=== PATIENT | male | born 1960 | race Caucasian/White ===

== ENCOUNTER 2019-09-24 14:49 | Inpatient (IN) | payer OTHER ==
[~2019-09-24] VITALS: Ht 165.1 cm; Wt 73.6 kg
[2019-09-24] MEDS ORDERED: IV NORMAL SALINE 1,000ML 1,000 ML IV SCH (14:58)
[2019-09-24] MEDS ORDERED: ASPIRIN 81 MG TAB.CHEW PO ONE (15:00)
[2019-09-24] MEDS ORDERED: ONDANSETRON PF 4 MG/2 ML VIAL. ONE (15:09)
[2019-09-24] MEDS: MORPHINE SULFATE 4 MG/ML DISP.SYRIN. IV/SQ PRN ×2 (15:14→17:04)
[2019-09-24] MEDS ORDERED: ONDANSETRON PF 4 MG/2 ML VIAL. IVP ONE (15:15)
--- NOTE | 2019-09-24 15:16 | PHYS DOC ---
Past History Past Medical History: Cancer (NELA IVERSON Jr., DO) Past Medical History: Alcoholism, Anxiety, GERD (LINN HOLLAND MD) Past Surgical History: Other Additional Past Surgical Histo: port in leg (NELA IVERSON Jr., DO) Alcohol Use: None (NELA IVERSON Jr., DO) Adult General Chief Complaint Chief Complaint: CHEST PAIN HPI HPI Patient is a 58-year-old male who presents with complaint of chest pain with nausea, vomiting and diaphoresis that started 2 days ago. Patient states that initially pain was fairly mild but today it has gotten a lot more severe and patient rates it at an 8-9 out of 10 currently. He describes pain as a lot of pressure, stating that it feels like there is an elephant sitting on his chest. Patient states that symptoms are worsened with exertion and he has some shortness of breath with exertion.[] (NELA IVERSON Jr., DO) Review of Systems Review of Systems Constitutional: Denies fever or chills [] Respiratory: Denies cough or shortness of breath [] Cardiovascular: No additional information not addressed in HPI [] GI: Denies abdominal pain. Complains of nausea and vomiting without diarrhea [] Integument: Denies rash or skin lesions [] Neurologic: Denies headache, focal weakness or sensory changes [] All other systems were reviewed and found to be within normal limits, except as documented in this note. (NELA IVERSON Jr., DO) Current Medications Current Medications Current Medications Medications (Trade) Dose Ordered Sig/Vishal Start Time Stop Time Status Last Admin Dose Admin Aspirin (Children'S Aspirin) 324 mg 1X ONCE 09/24/19 15:00 09/24/19 15:01 UNV Morphine Sulfate (Morphine 4mg Syringe) 4 mg PRN Q15MIN PRN 09/24/19 15:00 09/25/19 14:59 UNV Ondansetron HCl (Zofran) 4 mg 1X ONCE 09/24/19 15:15 09/24/19 15:16 UNV Sodium Chloride 1,000 ml @ 1,000 mls/hr Q1H 09/24/19 14:58 09/24/19 15:57 UNV (NELA IVERSON Jr., DO) Allergies Allergies Allergies Coded Allergies Type Severity Reaction Last Updated Verified No Known Drug Allergies 09/24/19 No (NELA IVERSON Jr., DO) Physical Exam Physical Exam Constitutional: Well developed, well nourished, in mild distress, non-toxic appearance. [] HENT: Normocephalic, atraumatic, bilateral external ears normal, oropharynx moist, no oral exudates, nose normal. [] Eyes: PERRLA, EOMI, conjunctiva normal, no discharge. [] Neck: Normal range of motion, no tenderness, supple, no stridor. [] Cardiovascular: Regular rate and rhythm[] Lungs & Thorax: Bilateral breath sounds clear to auscultation [] Abdomen: Bowel sounds normal, soft, no tenderness. [] Skin: Warm, dry, no erythema, no rash. [] Extremities: No tenderness, no cyanosis, no clubbing, ROM intact, no edema. [] Neurologic: Alert and oriented X 3, normal motor function, normal sensory function, no focal deficits noted. [] (NELA IVERSON Jr., DO) Current Patient Data Vital Signs Vital Signs Date Time Temp Pulse Resp B/P (MAP) Pulse Ox O2 Delivery O2 Flow Rate FiO2 09/24/19 14:58 97.6 78 18 123/83 (96) 99 Room Air (NELA IVERSON Jr., DO) EKG EKG EKG demonstrates sinus arrhythmia with rate of 79.[] (NELA IVERSON Jr., DO) Radiology/Procedures Radiology/Procedures [] (NELA IVERSON Jr., DO) Radiology/[place] [address] IMAGING REPORT Signed PATIENT: ALDEN SEPULVEDAACCOUNT: [id number] : 1960 LOCATION: ER AGE: 58 SEX: M EXAM STATUS: REG ER ORD. PHYSICIAN: NELA IVERSON Jr., DO REASON: upper abd pain; vomiting PROCEDURE: CT ABD PELV W/ IV CONTRST ONLY INDICATION: Upper abdominal pain and vomiting COMPARISON: None. TECHNIQUE: Axial CT images obtained through the abdomen and pelvis with contrast. One or more of the following individualized dose reduction techniques were utilized for this examination: 1. Automated exposure control; 2. Adjustment of the mA and/or kV according to patient size; 3. Use of iterative reconstruction technique. FINDINGS: linear opacities lung bases could be from scarring or atelectasis. Scattered calcific atherosclerosis. Fat-containing inguinal hernias. Liver is low density. Fat-containing umbilical hernia. Low-density within the liver at the falciform ligament. Commonly from focal fat. Apparent fold at the fundus of the gallbladder or possibly diverticulum. There is prominence of the wall at that region. There is also some calcifications along the wall suspected gallbladder. Spleen is small in size. No left-sided hydronephrosis. Urinary bladder partially distended with some mild indistinctness of adjacent fat. No right-sided hydronephrosis. Calcifications within the prostate. Colonic diverticulosis. No periappendiceal inflammatory changes. No dilated loops of bowel to suggest obstruction. Fat-containing umbilical hernia. Multiple right lower rib fractures. Fracture line is still seen with some of them having some apparent callus formation. IMPRESSION: * No evidence of bowel obstruction or appendicitis. * There is a fold or diverticulum at the fundus of the gallbladder with some prominence of the wall at this site. It may be helpful to obtain a focused ultrasound to further assess. There is also some suspected calcifications along the wall although tiny stones could have this appearance as well. * Multiple right rib fractures with fracture line still seen although some of these may have some early callus formation. Would correlate with pain in the region and history of trauma. Could be subacute in nature given the appearance. * Mild indistinctness in the fat adjacent to the urinary bladder. Would correlate with symptoms in the region to ensure that this is not from a pathologic cause such as mild cystitis. Electronically signed by: Korey Escobedo MD (09/24/2019 6:31 PM) [id number] DICTATED AND SIGNED BY: KOREY ESCOBEDO MD DATE: 09/24/191830 CC: NELA IVERSON Jr., DO; LINN HOLLAND MD; PCP,NO ~[address] [address] IMAGING REPORT Signed PATIENT: ALDEN SEPULVEDAACCOUNT: [id number] : 1960 LOCATION: ER AGE: 58 SEX: M EXAM STATUS: REG ER ORD. PHYSICIAN: NELA IVERSON Jr., DO REASON: chest pain PROCEDURE: PORTABLE CHEST 1V Single view of the chest. 09/24/2019 2:58 PM Indication: Chest pain Comparison: None Findings: There is a left subclavian port with tip at the superior vena cava. No pneumothorax, pleural effusion, or focal infiltrate is seen. Heart size is normal. Bony thorax is grossly intact. IMPRESSION: No evidence of acute cardiopulmonary process Electronically signed by: Torres Saenz MD (09/24/2019 3:29 PM) [id number] DICTATED AND SIGNED BY: TORRES SAENZ MD DATE: 09/24/19 1529 CC: NELA IVERSON Jr. DO; PCP,NO ~ (LINN HOLLAND MD) Course & Med Decision Making Course & Med Decision Making Pertinent Labs and Imaging studies reviewed. (See chart for details) [] (NELA IVERSON Jr., DO) Course & Med Decision Making See Dr. Iverson note for details. Plan admit for observation CP, and Intractable vomiting. Dr. Saleem/ [facility] Cardiology consult. US gallbladder in Am. Heart Score= 4 Impression: 1. Chest pain-suspect related to acute biliary colic/gastritis and reflux 2. Diabetes glucose 147 3. Hypomagnesemia 1.7 4. Alcohol abuse 222 5. Biliary colic/gastritis/GERD Hx 6. Epigastric Abdomen pain-intractable vomiting 7. Dehydration 8. Rib fractures-appear to be old by callus (LINN HOLLAND MD) Dragon Disclaimer Dragon Disclaimer This electronic medical record was generated, in whole or in part, using a voice recognition dictation system. (NELA IVERSON Jr., DO) Departure Departure: Impression: Primary Impression: Chest pain Additional Impression: Intractable vomiting Disposition: HOME/RESIDENCE PRIOR TO ADM Condition: STABLE Referrals: PCP,NO (PCP) Dragon Disclaimer This chart was dictated in whole or in part using Voice Recognition software in a busy, high-work load, and often noisy Emergency Department environment. It may contain unintended and wholly unrecognized errors or omissions. (LINN HOLLAND MD) Problem Qualifiers Primary Impression: Chest pain Chest pain type: unspecified Qualified Codes: R07.9 - Chest pain, unspecified Additional Impression: Intractable vomiting Vomiting type: unspecified Nausea presence: with nausea Qualified Codes: R11.2 - Nausea with vomiting, unspecified NELA IVERSON Jr. DO Sep 24, 2019 15:16 LINN HOLLAND MD Sep 24, 2019 18:36
[2019-09-24 15:31] LABS: BASO # 0.1 x10^3/uL (0.0-0.2); BASO % 1 % (0-3); EOS % 1 % (0-3); HEMATOCRIT 49.5 % (39.0-53.0); HEMOGLOBIN 16.8 g/dL (13.0-17.5); LYMPH # 2.3 x10^3/uL (1.0-4.8); LYMPH % 32 % (24-48); MEAN CORPUSCULAR HEMOGLOBIN 34 pg (25-35); MEAN CORPUSCULAR HGB CONC 34 g/dL (31-37); MEAN CORPUSCULAR VOLUME 100 fL (79-100); MONO # 0.7 x10^3/uL (0.0-1.1); MONO % 10 % (0-9); NEUT % 57 % (31-73); PLATELET COUNT 173 x10^3/uL (140-400); RED BLOOD COUNT 4.97 x10^6/uL (4.30-5.70); RED CELL DISTRIBUTION WIDTH 13.5 % (11.5-14.5)
--- NOTE | 2019-09-24 15:32 | RAD ---
Single view of the chest. 09/24/2019 2:58 PM Indication: Chest pain Comparison: None Findings: There is a left subclavian port with tip at the superior vena cava. No pneumothorax, pleural effusion, or focal infiltrate is seen. Heart size is normal. Bony thorax is grossly intact. IMPRESSION: No evidence of acute cardiopulmonary process Electronically signed by: Torres Rasmussen MD (09/24/2019 3:29 PM) [id number]
[2019-09-24 15:33] LABS: CALCIUM 8.7 mg/dL (8.5-10.1); CREATININE 0.8 mg/dL (0.7-1.3); GFR 98.6; POTASSIUM 3.7 mmol/L (3.5-5.1)
[2019-09-24] MEDS ORDERED: METOCLOPRAMIDE HCL 10 MG/2 ML VIAL. IVP ONE (15:45)
[2019-09-24 15:46] LABS: ALBUMIN 3.5 g/dL (3.4-5.0); MAGNESIUM 1.7 mg/dL (1.8-2.4); TOTAL BILIRUBIN 0.2 mg/dL (0.2-1.0); TOTAL PROTEIN 7.1 g/dL (6.4-8.2)
[2019-09-24] MEDS ORDERED: diphenhydrAMINE 50 MG/ML VIAL IVP ONE (17:00)
[2019-09-24] MEDS ORDERED: PROCHLORPERAZINE 10 MG/2 ML VIAL. IV ONE (17:00)
[2019-09-24] MEDS ORDERED: IOHEXOL 300 MG/ML 75 ML VIAL. IV ONE (17:15)
[2019-09-24 17:30] LABS: BILIRUBIN,URINE NEG (NEG); CLARITY,URINE CLEAR; COLOR,URINE YELLOW; GLUCOSE,URINE NEG (NEG)
[2019-09-24 17:31] LABS: BACTERIA,URINE 0 /HPF (0-FEW); NITRITE,URINE NEG (NEG); RBC,URINE OCC /HPF (0-2); SQUAMOUS EPITHELIAL CELL,UR OCC /LPF; UROBILINOGEN,URINE 0.2 mg/dL (0.2 mg/dL); WBC,URINE 0 /HPF (0-4)
--- NOTE | 2019-09-24 17:33 | EKG ---
[address] [address] Test Date: 2019-09-24 Test Time: 14:53:26 Pat Name: ALDEN SEPULVEDA Department: Room: Gender: M [employer] Technician: : 1960 Requested By: NELA RYAN Order Number: [id number] Reading MD: Measurements Intervals [place] Rate: 79 P: 73 [place]: 128 QRS: -42 QRSD: 78 T: 45 QT: 394 QTc: 453 Interpretive Statements SINUS ARRHYTHMIA ABNORMAL LEFT AXIS DEVIATION LEFT ANTERIOR FASCICULAR BLOCK QRS(T) CONTOUR ABNORMALITY CONSIDER ANTEROLATERAL MYOCARDIAL DAMAGE ABNORMAL ECG RI6.01 No previous ECG available for comparison
[2019-09-24 17:58] LABS: BARBITURATES NEG (NEG); BENZODIAZEPINES NEG (NEG); CANNABINOIDS NEG (NEG); COCAINE NEG (NEG); METHADONE NEG (NEG); OPIATES POS (NEG); PHENCYCLIDINE NEG (NEG)
[2019-09-24 18:01] LABS: AMPHETAMINE/METHAMPHETAMINE NEG (NEG)
--- NOTE | 2019-09-24 18:34 | RAD ---
INDICATION: Upper abdominal pain and vomiting COMPARISON: None. TECHNIQUE: Axial CT images obtained through the abdomen and pelvis with contrast. One or more of the following individualized dose reduction techniques were utilized for this examination: 1. Automated exposure control; 2. Adjustment of the mA and/or kV according to patient size; 3. Use of iterative reconstruction technique. FINDINGS: linear opacities lung bases could be from scarring or atelectasis. Scattered calcific atherosclerosis. Fat-containing inguinal hernias. Liver is low density. Fat-containing umbilical hernia. Low-density within the liver at the falciform ligament. Commonly from focal fat. Apparent fold at the fundus of the gallbladder or possibly diverticulum. There is prominence of the wall at that region. There is also some calcifications along the wall suspected gallbladder. Spleen is small in size. No left-sided hydronephrosis. Urinary bladder partially distended with some mild indistinctness of adjacent fat. No right-sided hydronephrosis. Calcifications within the prostate. Colonic diverticulosis. No periappendiceal inflammatory changes. No dilated loops of bowel to suggest obstruction. Fat-containing umbilical hernia. Multiple right lower rib fractures. Fracture line is still seen with some of them having some apparent callus formation. IMPRESSION: * No evidence of bowel obstruction or appendicitis. * There is a fold or diverticulum at the fundus of the gallbladder with some prominence of the wall at this site. It may be helpful to obtain a focused ultrasound to further assess. There is also some suspected calcifications along the wall although tiny stones could have this appearance as well. * Multiple right rib fractures with fracture line still seen although some of these may have some early callus formation. Would correlate with pain in the region and history of trauma. Could be subacute in nature given the appearance. * Mild indistinctness in the fat adjacent to the urinary bladder. Would correlate with symptoms in the region to ensure that this is not from a pathologic cause such as mild cystitis. Electronically signed by: Martin Escobedo MD (09/24/2019 6:31 PM) [id number]
[2019-09-24] MEDS ORDERED: MAGNESIUM SULFATE 2GM 50 ML IV ONE (19:00)
[2019-09-24] MEDS ORDERED: MORPHINE SULFATE 10 MG/ML SYRINGE. SQ PRN (19:00)
[2019-09-24] MEDS ORDERED: ONDANSETRON PF 4 MG/2 ML VIAL. IVP PRN (19:00)
[2019-09-24] MEDS ORDERED: MVI, ADULT NO.4 WITH VIT K 10 ML, FOLIC ACID INJ 1 MG, THIAMINE INJ 100 MG in IV RINGER... IV ONE ×4 (19:00)
[2019-09-24] MEDS ORDERED: ACETAMINOPHEN 325 MG TABLET PO PRN (19:00)
[2019-09-24] MEDS: IPRATRPIUM/ALBUTEROL 0.5/2.5MG 3 ML NEBU. NEB SCH (20:00)
[2019-09-24 22:10] VITALS: BP 142/86
[2019-09-24] MEDS: IV RINGERS SOLUTION,LACTATED 1,000 ML IV SCH (22:23)
[2019-09-24] MEDS: FAMOTIDINE 20 MG/2 ML VIAL IVP SCH (23:25)
[2019-09-25] MEDS ORDERED: MELA3TAB4 PO (01:01)
[2019-09-25] MEDS ORDERED: SUCR1TAB PO (01:01)
[2019-09-25] MEDS ORDERED: FLUO60TA PO (01:01)
[2019-09-25] MEDS ORDERED: BUSP15TA PO (01:01)
[2019-09-25] MEDS: IV RINGERS SOLUTION,LACTATED 1,000 ML IV SCH ×2 (02:56→17:17)
[2019-09-25] MEDS: IPRATRPIUM/ALBUTEROL 0.5/2.5MG 3 ML NEBU. NEB SCH ×3 (04:40→16:32)
[2019-09-25 05:36] VITALS: BP 144/95
--- NOTE | 2019-09-25 08:21 | RAD ---
Ultrasound the abdomen complete. HISTORY: Abdominal pain, nausea, vomiting, abnormal CT scan Ultrasound was used to evaluate the abdomen. Pancreas is poorly visualized, portions of the mid pancreas were identified. There are multiple gallstones in the gallbladder. Gallbladder wall was mildly thickened. Liver was normal in size without a focal lesion. Mild fatty liver changes possible. Common duct was upper normal at 5 mm. Right kidney was 10.7 cm in length without a mass or hydronephrosis. Aorta and vena cava were unremarkable. Spleen was normal in size and appearance. Left kidney was 10.2 cm in length without a mass or hydronephrosis. IMPRESSION: 1. Cholelithiasis with thickening of the gallbladder wall possible cholecystitis. 2. Poor visualization of the pancreas. Electronically signed by: Sadiq Lawson MD (09/25/2019 8:18 AM) [id number]
[2019-09-25] MEDS: FAMOTIDINE 20 MG/2 ML VIAL IVP SCH ×2 (08:56→20:51)
[2019-09-25] MEDS: ASPIRIN 81 MG TAB.CHEW PO SCH (08:56)
--- NOTE | 2019-09-25 08:58 | PDOC2 ---
PAUL LARIOS [employer] 09/25/19 0858: CARDIAC CONSULT DATE OF CONSULT Date Of Consult DATE: 09/25/19 TIME: 08:51 REASON FOR CONSULT Reason for Consult Chest pain REFERRING PHYSICIAN Referring Physician Dr. Bennett SOURCE Source: Chart review, Patient HPI History of Present Illness This is a 58 yo male who presented secondary to chest pain. Patient has a history of lung CA s/p chem and radiation therapy. Reports he has experienced chest pain and shortness of breath for the last year since beginning treatment. Recently, pain has been worse. Located in his bilateral chest. Describes as sharp in nature. Is worse with deep breathing. No dizziness, diaphoresis, palpitations. Has been slightly nauseated. Receives care at [facility]. PAST MEDICAL HISTORY Heme/Onc: Cancer (lung ) Psych: Anxiety, Depression PAST SURGICAL HISTORY Past Surgical History: No pertinent history FAMILY HISTORY Family History: Heart Disease, High Cholestrol, Hypertension SOCIAL HISTORY Smoke: <1 pack per day ALCOHOL: other (daily; 2-3 Vodka drinks daily) Lives: Alone CURRENT MEDICATIONS Current Medications Current Medications Aspirin (Children'S Aspirin) 324 mg 1X ONCE PO Last administered on 09/24/19at 15:00; Start 09/24/19 at 15:00; Stop 09/24/19 at 15:23; Status DC Morphine Sulfate (Morphine 4mg Syringe) 4 mg PRN Q15MIN PRN IV/SQ PAIN GREATER THAN 3/10 Last administered on 09/24/19at 17:04; Start 09/24/19 at 15:00; Stop 09/25/19 at 14:59 Sodium Chloride 1,000 ml @ 1,000 mls/hr Q1H IV Last administered on 09/24/19at 15:13; Start 09/24/19 at 14:58; Stop 09/24/19 at 15:57; Status DC Ondansetron HCl (Zofran) 4 mg STK-MED ONCE .ROUTE ; Start 09/24/19 at 15:09; Stop 09/24/19 at 15:09; Status DC Ondansetron HCl (Zofran) 4 mg 1X ONCE IVP Last administered on 09/24/19at 15:13; Start 09/24/19 at 15:15; Stop 09/24/19 at 15:23; Status DC Metoclopramide HCl (Reglan Vial) 10 mg 1X ONCE IVP Last administered on 09/24/19at 15:41; Start 09/24/19 at 15:45; Stop 09/24/19 at 15:53; Status DC Prochlorperazine Edisylate (Compazine) 10 mg 1X ONCE IV Last administered on 09/24/19at 17:03; Start 09/24/19 at 17:00; Stop 09/24/19 at 17:01; Status DC Diphenhydramine HCl (Benadryl) 25 mg 1X ONCE IVP Last administered on 09/24/19at 17:04; Start 09/24/19 at 17:00; Stop 09/24/19 at 17:01; Status DC Iohexol (Omnipaque 300 Mg/ml) 75 ml 1X ONCE IV ; Start 09/24/19 at 17:15; Stop 09/24/19 at 17:27; Status DC Ondansetron HCl (Zofran) 4 mg PRN Q4HRS PRN IVP NAUSEA/VOMITING; Start 09/24/19 at 19:00; Stop 09/25/19 at 18:59 Acetaminophen (Tylenol) 650 mg PRN Q4HRS PRN PO FEVER; Start 09/24/19 at 19:00; Stop 09/25/19 at 18:59 Albuterol/ Ipratropium (Duoneb) 3 ml RTQID NEB Last administered on 09/25/19at 04:40; Start 09/24/19 at 20:00; Stop 09/25/19 at 19:59 Multivitamins/ Minerals 10 ml/ Folic Acid 1 mg/ Thiamine HCl 100 mg/Lactated Ringer's 1,011.3 ml @ 1,011.3 mls/hr 1X ONCE IV Last administered on 09/24/19at 19:00; Start 09/24/19 at 19:00; Stop 09/24/19 at 19:59; Status DC Famotidine (Pepcid Vial) 20 mg BID IVP Last administered on 09/24/19at 23:25; Start 09/24/19 at 21:00 Lactated Ringer's 1,000 ml @ 200 mls/hr Q5H IV Last administered on 09/25/19at 02:56; Start 09/24/19 at 19:00 Morphine Sulfate (Morphine 10mg Syringe) 10 mg PRN QID PRN SQ PAIN; Start 09/24/19 at 19:00 Lorazepam (Ativan Inj) 1 mg QID IVP Last administered on 09/24/19at 23:25; Start 09/24/19 at 21:00 Magnesium Sulfate 50 ml @ 25 mls/hr 1X ONCE IV Last administered on 09/24/19at 22:23; Start 09/24/19 at 19:00; Stop 09/24/19 at 20:59; Status DC Aspirin (Children'S Aspirin) 81 mg DAILY PO ; Start 09/25/19 at 09:00 Active Scripts Active Reported Sucralfate 1 Gm Tablet 1 Gm PO DAILYAC Fluoxetine Hcl 60 Mg Tablet 60 Mg PO DAILY Buspirone Hcl 15 Mg Tablet 15 Mg PO BID Melatonin 3 Mg Tablet 3 Mg PO QHS ALLERGIES Allergies: Coded Allergies: No Known Drug Allergies (Unverified , 09/24/19) ROS Review of Systems 14 point ROS conducted with pertinent positives noted above in HPI PHYSICAL EXAM General: Alert, Oriented X3, Cooperative, No acute distress HEENT: Atraumatic, Mucous membr. moist/pink Lungs: Clear to auscultation Heart: Regular rate Abdomen: Soft, No tenderness Extremities: No edema, Normal pulses Skin: No breakdown Neuro: Normal speech, Sensation intact Psych/Mental Status: Mental status NL, Mood NL MUSCULOSKELETAL: Osteoarthritic changes both hands VITALS Vital Signs Vital Signs Date Time Temp Pulse Resp B/P (MAP) Pulse Ox O2 Delivery O2 Flow Rate FiO2 09/25/19 05:36 97.4 87 20 144/95 (111) 92 Room Air LABS LABS Laboratory Tests Test 09/24/19 14:52 09/24/19 16:36 09/24/19 23:05 White Blood Count 7.0 x10^3/uL (4.0-11.0) Red Blood Count 4.97 x10^6/uL (4.30-5.70) Hemoglobin 16.8 g/dL (13.0-17.5) Hematocrit 49.5 % (39.0-53.0) Mean Corpuscular Volume 100 fL (79-100) Mean Corpuscular Hemoglobin 34 pg (25-35) Mean Corpuscular Hemoglobin Concent 34 g/dL (31-37) Red Cell Distribution Width 13.5 % (11.5-14.5) Platelet Count 173 x10^3/uL (140-400) Neutrophils (%) (Auto) 57 % (31-73) Lymphocytes (%) (Auto) 32 % (24-48) Monocytes (%) (Auto) 10 % (0-9) Eosinophils (%) (Auto) 1 % (0-3) Basophils (%) (Auto) 1 % (0-3) Neutrophils # (Auto) 4.0 x10^3uL (1.8-7.7) Lymphocytes # (Auto) 2.3 x10^3/uL (1.0-4.8) Monocytes # (Auto) 0.7 x10^3/uL (0.0-1.1) Eosinophils # (Auto) 0.0 x10^3/uL (0.0-0.7) Basophils # (Auto) 0.1 x10^3/uL (0.0-0.2) Sodium Level 145 mmol/L (136-145) Potassium Level 3.7 mmol/L (3.5-5.1) Chloride Level 106 mmol/L (98-107) Carbon Dioxide Level 24 mmol/L (21-32) Anion Gap 15 (6-14) Blood Urea Nitrogen 17 mg/dL (8-26) Creatinine 0.8 mg/dL (0.7-1.3) Estimated GFR (Cockcroft-Gault) 98.6 BUN/Creatinine Ratio 21 (6-20) Glucose Level 147 mg/dL (70-99) Calcium Level 8.7 mg/dL (8.5-10.1) Magnesium Level 1.7 mg/dL (1.8-2.4) Total Bilirubin 0.2 mg/dL (0.2-1.0) Aspartate Amino Transf (AST/SGOT) 26 U/L (15-37) Alanine Aminotransferase (ALT/SGPT) 21 U/L (16-63) Alkaline Phosphatase 116 U/L (46-116) Troponin I Quantitative < 0.017 ng/mL (0-0.055) < 0.017 ng/mL (0-0.055) VI-Beh-L-Type Natriuretic Peptide 47 pg/mL (0-124) Total Protein 7.1 g/dL (6.4-8.2) Albumin 3.5 g/dL (3.4-5.0) Albumin/Globulin Ratio 1.0 (1.0-1.7) Amylase Level 201 U/L (25-115) Lipase 223 U/L (73-393) Ethyl Alcohol Level 222 mg/dL (0-10) Urine Collection Type Unknown Urine Color Yellow Urine Clarity Clear Urine pH 6.0 Urine Specific [place] >=1.030 Urine Protein Neg (NEG-TRACE) Urine Glucose (UA) Neg mg/dL (NEG) Urine Ketones (Stick) 15 mg/dL (NEG) Urine Blood Neg (NEG) Urine Nitrite Neg (NEG) Urine Bilirubin Neg (NEG) Urine Urobilinogen Dipstick 0.2 mg/dL (0.2 mg/dL) Urine Leukocyte Esterase Neg (NEG) Urine RBC Occ /HPF (0-2) Urine WBC 0 /HPF (0-4) Urine Squamous Epithelial Cells Occ /LPF Urine Bacteria 0 /HPF (0-FEW) Urine Mucus Mod /LPF Urine Opiates Screen Pos (NEG) Urine Methadone Screen Neg (NEG) Urine Barbiturates Neg (NEG) Urine Phencyclidine Screen Neg (NEG) Urine Amphetamine/Methamphetamine Neg (NEG) Urine Benzodiazepines Screen Neg (NEG) Urine Cocaine Screen Neg (NEG) Urine Cannabinoids Screen Neg (NEG) Urine Ethyl Alcohol Pos (NEG) ASSESSMENT/PLAN Assessment/Plan 1. Chest pain, atypical. AMI ruled out. 2. Lung CA s/p chemo and radiation 3. US with cholelithiasis with possible cholecystitis; as per PCP 4. Alcohol misuse; discussed/encouraged limiting use 5. Hypermagnesemia 6. Depression/anxiety Recommendations TSH, lipids Echo to assess LV systolic function; patient would prefer to do this on an outpatient basis at the [facility] from a CV standpoint. PB KENNY MD 09/26/19 1025: CARDIAC CONSULT ASSESSMENT/PLAN Assessment/Plan Patient seen and examined on 09/25/19 Chest pain. Atypical. Resolved. Ruled out. No acute EKG changes. We'll continue medical treatment. Lung cancer. Status post chemotherapy and radiation treatment. We'll continue present treatment. Believe it is reasonable to check an outpatient echo for LV function. History of excessive alcohol use. Discussed. Would continue present treatments and increase activity. Thank you for allowing us to participate in the care of your patient. RICPAUL AD Sep 25, 2019 08:58 PB KENNY MD Sep 26, 2019 10:25
[2019-09-25] MEDS ORDERED: FLUOXETINE HCL 60 MG PO SCH (10:30)
[2019-09-25] MEDS ORDERED: FLUoxetine HCL 20 MG CAPSULE PO ONE (10:30)
[2019-09-25] MEDS: SUCRALFATE 1 GM TABLET. PO SCH (11:05)
[2019-09-25] MEDS: busPIRone 15 MG TABLET. PO SCH ×2 (11:05→20:51)
[2019-09-25 11:22] VITALS: BP 155/92
[2019-09-25 11:25] VITALS: BP 155/92
[2019-09-25 15:12] VITALS: BP 130/82
--- NOTE | 2019-09-25 16:42 | HP ---
ADMIT DATE: 09/24/2019 HISTORY OF PRESENT ILLNESS: The patient is a 58-year-old male patient who came to the Emergency Room with a complaint of chest pain. On questioning him further, he stated that this chest pain started since he started his chemo and radiation therapy about a year and half ago and was diagnosed accidentally with lung cancer in his right lung. He has received 4 sessions of chemotherapy and 30 radiation sessions and since then has had this recurrent episode of chest pain that comes at rest without any exertion. The chest pain is associated with shortness of breath, some nausea and vomiting. Denied any diaphoresis, denied any radiation. He actually has had a stress test about 6 months ago and left heart catheterization about a year ago and both of them were unremarkable with no evidence of any significant coronary artery disease. He was evaluated in the Emergency Room and his lab work showed that first set of cardiac enzyme was less than 0.017. All other labs are unremarkable. Has a chest x-ray, which showed no evidence of acute cardiopulmonary process and a CT scan of the abdomen and pelvis, which basically showed that there is no evidence of bowel obstruction, appendicitis. This is a fold or diverticulum at the fundus of the gallbladder with some prominence of the wall at this site, may be helpful to obtain a focused ultrasound to further assist. There is also some suspected calcification along the wall, although tiny stones could have this appearance as well. He has multiple right sided rib fractures with fracture lines still seen, although some of these may have some early callus formation with correlate with pain in the region and history of trauma, could be subacute in nature given the appearance. He has mild indistinctness in the fat adjacent to the urinary bladder. Would correlate his symptoms in the region to ensure that this is not a pathological cause such as mild cystitis. The patient was admitted to do 2 more sets of cardiac enzyme, consult the Cardiology team. PAST MEDICAL HISTORY: Significant for chronic obstructive pulmonary disease, lung cancer, hyperlipidemia and gastroesophageal reflux disease. PAST SURGICAL HISTORY: Significant for Port-A-Cath placement for chemotherapy. He has also esophagogastroduodenoscopy and colonoscopy. ALLERGIES: He has no known drug allergies. MEDICATIONS: He is currently on following medications: He is on fluoxetine 60 mg once a day, buspirone 15 mg twice a day, sucralfate 1 gram 3 times a day before meals and melatonin 3 mg at bedtime. FAMILY HISTORY: He has 3 brothers and 2 sisters, all living. One brother at age of 57 because of myocardial infarction. His father at the age of 57 because of myocardial infarction. Mother at the age of 60, cause of is not clear. SOCIAL HISTORY: He is , has no children. He smokes 4-5 cigarettes a day, drinks 2-3 drinks of vodka every day. He does not use any drugs. He is currently on disability. He is a and gets all his care at [facility]. REVIEW OF SYSTEMS: As per history of present illness. PHYSICAL EXAMINATION: GENERAL: On arrival to the Emergency Room, he looked well and was clearly in no apparent respiratory distress. No pallor, jaundice, cyanosis or thyromegaly. No jugular venous distention. No limb edema. VITAL SIGNS: His heart rate was 78, blood pressure was 123/83, temperature was 97.6, respiratory rate was 18 and oxygen saturation was 99%. HEAD, EYES, EARS, NOSE AND THROAT: Showed normocephalic, atraumatic. NECK: Supple. HEART: Showed normal first and second heart sounds with no gallop or murmur. CHEST: Clear to auscultation. No crepitation or rhonchi. ABDOMEN: Distended, soft, nontender. No guarding or rigidity. No organomegaly. All hernial orifices intact. Bowel sounds normal. NEUROLOGIC: He was grossly intact. LABORATORY DATA: His lab work showed a white cell count 7000. His hemoglobin was 16.8, hematocrit 49.5, MCV 100, and platelet count of 173,000. Serum sodium 145, potassium 3.7, chloride 106, bicarbonate 24, anion gap of 15, BUN 17, creatinine 0.8, estimated GFR was 98 mL per minute. His glucose 147, calcium was 8.7, magnesium was 1.7. Total bilirubin, AST, ALT, alkaline phosphatase were normal. Total protein was 7.1, albumin was 3.5. Lipase was 223. Troponin was less than 0.017. Urinalysis was essentially unremarkable. Toxic screen was positive for opiates and blood alcohol level of 222 mg/dL. The patient will be admitted to do 2 more sets of cardiac enzyme, consult the Cardiology team and arrange for abdominal ultrasound. MIQUEL ESPINOZA MD DR: Aries JOB#: [id number] / [id number]
--- NOTE | 2019-09-25 18:50 | PN ---
DATE: SUBJECTIVE: The patient was admitted yesterday with fairly atypical chest pain, has 2 sets of cardiac enzymes. His abdominal ultrasound showed cholelithiasis and possible acute cholecystitis and therefore, a decision was made to arrange for him to have a hepatobiliary scan to decide on further management according to the finding. PHYSICAL EXAMINATION: GENERAL: When I saw him this afternoon, he looked well and was clearly in no apparent respiratory distress. No pallor, jaundice, cyanosis or thyromegaly. No jugular venous distention. No limb edema. VITAL SIGNS: His heart rate was 77, blood pressure was 130/82, temperature was 98.4, respiratory rate was 20 and oxygen saturation was 95%. The rest of clinical exam is stable. PLAN: To arrange for him to have a hepatobiliary scan and according to the finding, we will decide whether to transfer in perhaps to [facility] or if there is no evidence of acute cholecystitis, he can be discharged home to follow with his primary care physician at the [facility]. MIQUEL ESPINOZA MD DR: COURTNEY/nga JOB#: [id number] / [id number]
[2019-09-25 20:08] VITALS: BP 140/88
[2019-09-25] MEDS ORDERED: MELATONIN 3 MG TABLET PO SCH (21:00)
[2019-09-25 23:24] VITALS: BP 144/84
[2019-09-26 06:21] LABS: HEMATOCRIT 43.2 % (39.0-53.0); HEMOGLOBIN 14.9 g/dL (13.0-17.5); RED BLOOD COUNT 4.34 x10^6/uL (4.30-5.70); RED CELL DISTRIBUTION WIDTH 13.7 % (11.5-14.5); WHITE BLOOD COUNT 4.2 x10^3/uL (4.0-11.0)
[2019-09-26 06:29] VITALS: BP 148/89
[2019-09-26 06:32] LABS: ALBUMIN 2.9 g/dL (3.4-5.0); ALBUMIN/GLOBULIN RATIO 0.9 (1.0-1.7); CALCIUM 8.2 mg/dL (8.5-10.1); CREATININE 0.8 mg/dL (0.7-1.3); GFR 98.6; POTASSIUM 3.5 mmol/L (3.5-5.1); TOTAL BILIRUBIN 0.6 mg/dL (0.2-1.0); TOTAL PROTEIN 6.2 g/dL (6.4-8.2)
[2019-09-26] MEDS ORDERED: SINCALIDE 1.5 MCG in IV NORMAL SALINE 50ML 30 ML IV ONE (08:00)
[2019-09-26] MEDS ORDERED: FLUoxetine HCL 20 MG CAPSULE PO SCH (09:00)
[2019-09-26] MEDS: busPIRone 15 MG TABLET. PO SCH (09:01)
[2019-09-26] MEDS: ASPIRIN 81 MG TAB.CHEW PO SCH (09:01)
[2019-09-26] MEDS: SUCRALFATE 1 GM TABLET. PO SCH (09:01)
[2019-09-26] MEDS: FAMOTIDINE 20 MG/2 ML VIAL IVP SCH (09:02)
--- NOTE | 2019-09-26 10:02 | RAD ---
HEPATOBILIARY SCAN WITH EJECTION FRACTION History: Chest pain, nausea and vomiting x3 days. Comparison: CT abdomen and pelvis with contrast September 24, 2019. Abdominal ultrasound September 25, 2019. Procedure: Serial static images are obtained of the liver and biliary system in the frontal projection following IV administration of 5.5 mCi of Technetium 99m Choletec. After filling of the gallbladder, 1.5 mcg of sincalide were infused over 15 minutes and dynamic imaging continued over this period. The gallbladder ejection fraction was calculated. Findings: There is prompt hepatic clearance of tracer from the blood pool. There is homogeneous distribution throughout the liver. Tracer in common bile duct is identified by 15 minutes. Tracer in small bowel is seen by 20 minutes. There is moderate enterogastric reflux. Tracer in gallbladder is not seen. There is prominent tracer in the duodenum. The ejection fraction portion is performed but this information is invalid. The gallbladder did not fill. IMPRESSION: 1. The gallbladder is not visualized. This was not recognized until near the end of the study. Study can be repeated after at least 24 hours for tracer to clear. 2. Moderate enterogastric reflux. Electronically signed by: Pierre Anne MD (09/26/2019 9:59 AM) [id number]
[2019-09-26 10:30] VITALS: BP 135/88
--- NOTE | 2019-09-26 15:19 | DS ---
DATE OF DISCHARGE: 09/26/2019 HOSPITAL COURSE: The patient is a 58-year-old male patient who was admitted through the Emergency Room with complaint of chest pain and pain has been there since he started his chemo and radiation therapy about a year and a half ago, was diagnosed with extensive lung cancer in his right lung, has received 4 sessions of chemotherapy and 30 radiation sessions and since then has had recurrent episodes of chest pain that comes at rest without any exertion, is associated with shortness of breath, some nausea and vomiting. Denied any diaphoresis, denied any radiation. He had actually stress test about 6 months ago and left heart catheterization about a year ago and both of them were unremarkable with no evidence of any significant coronary artery disease. He was evaluated in the Emergency Room and his first set of cardiac enzyme was normal, less than 0.017. He did have a CT angio of the abdomen and pelvis, which basically showed that he had no evidence of bowel obstruction or appendicitis. There is also a fold or diverticulum at the fundus of the gallbladder with some prominence of the wall at this site and therefore abdominal ultrasound was done, which basically showed that there is cholelithiasis with thickening of the gallbladder wall with possible cholecystitis and we did a hepatobiliary scan. Unfortunately, it was inconclusive and the patient has been afebrile. Denied any abdominal pain and therefore, a decision was made to discharge him home to follow with his primary care physician at the [facility] to repeat the hepatobiliary scan to see whether the patient has biliary dyskinesia. PHYSICAL EXAMINATION: GENERAL: When I saw him this afternoon, he looked well and was clearly in no apparent respiratory distress. HEENT: No pallor, jaundice, cyanosis or thyromegaly. No jugular venous distention. No limb edema. VITAL SIGNS: His heart rate was 77, blood pressure was 135/88, temperature was 98.1, respiratory rate 20, and oxygen saturation was 96% on room air. HEAD, EYES, EARS, NOSE AND THROAT: Showed normocephalic, atraumatic. NECK: Supple. HEART: Showed normal first and second heart sounds. No gallop or murmur. CHEST: Clear to auscultation. No crepitation or rhonchi. ABDOMEN: Distended, soft, nontender. No guarding or rigidity. No organomegaly. All hernial orifice intact. Bowel sounds normal. NEUROLOGIC: He was grossly intact. LABORATORY DATA: This morning showed a serum sodium 141, potassium 3.5, chloride 106, bicarbonate 29, anion gap of 6, BUN 11, creatinine 0.8, estimated GFR was 98 mL per minute. His glucose 107, calcium was 8.2. Total bilirubin, AST, ALT, alkaline phosphatase were normal. Total protein was 6.2, albumin was 2.9. Serum lipase was 143. White cell count was 4200, hemoglobin 14, hematocrit 43, MCV 100, and platelet count was 118,000. Urinalysis was unremarkable and toxic screen was positive for opiates and blood alcohol level of 222 mg/dL. DISCHARGE MEDICATIONS: He was discharged home to continue on buspirone 15 mg twice a day, fluoxetine 60 mg daily, melatonin 3 mg at bedtime and sucralfate 1 gram before meals for acid reflux. MIQUEL ESPINOZA MD DR: COURTNEY/nga JOB#: [id number] / [id number]
== END 2019-09-26 15:20 | disposition home or self-care (01) | DRG 392 ==
LOC: ER 14:49 → 1 SOUTH 22:50 → OBSVTOIN 09-25 19:00
PROVIDERS: ADMIT Hospitalist; ATTEND Internal Medicine
DX: K21.9 Gastro-esophageal reflux disease without esophagitis (principal); K80.10 Calculus of gallbladder with chronic cholecystitis without obstruction; F41.9 Anxiety disorder, unspecified; F32.9 Major depressive disorder, single episode, unspecified; J44.9 Chronic obstructive pulmonary disease, unspecified; E78.5 Hyperlipidemia, unspecified; F17.210 Nicotine dependence, cigarettes, uncomplicated; E83.41 Hypermagnesemia; E11.9 Type 2 diabetes mellitus without complications; E83.42 Hypomagnesemia; E86.0 Dehydration; F10.10 Alcohol abuse, uncomplicated; Z92.21 Personal history of antineoplastic chemotherapy; Z85.118 Personal history of other malignant neoplasm of bronchus and lung; Z92.3 Personal history of irradiation; Z82.49 Family history of ischemic heart disease and other diseases of the circulatory system
CPT/HCPCS: 36415; 71045; 74177; 76700; 78227; 80053; 80061; 80307; 81001; 82150; 83690; 83735; 83880; 84484; 85025; 85027; 93005; 94640; 96361; 96365; 96366; 96375; 96376; A9537; G0238; G0378; G0379; G0480; J0780; J1200; J2060; J2270; J2405; J2765; J2805; J3475; J3490; J7120; 99285-25; J7030